=== PATIENT | female | born 1955 | race Caucasian/White ===

== ENCOUNTER 2019-07-01 21:11 | Emergency (ER) | payer OTHER ==
[~2019-07-01] VITALS: Ht 157.5 cm; Wt 86.2 kg
[2019-07-01 21:15] VITALS: BP 135/69
--- NOTE | 2019-07-01 21:19 | NUR ---
PT TAKEN TO BED 5
--- NOTE | 2019-07-01 21:25 | NUR ---
63 Y/O FEMALE BIB DAUGHTER C/P C/O PELVIC PAIN X 4 DAYS. PT DENIES ANY BLEEDING, BUT STATES NAUSEA. PATIENT APPEARS CALM AND COOPERATIVE. PAIN IS 9/10 ACUTE, SHARP PAIN STARTING IN BOTH SIDE OF HER PELVIS AND RADIATES TO THE RIGHT SIDE AND RIGHT LEG. PER PATIENT'S DAUGHTER, PAIN IS "MORE ON THE RIGHT SIDE AND THAT PAIN GETS STRONGER WHEN LYING DOWN". A/OX3 FOLLOWS COMMANDS; BREATHING IS UNLABORED AND SYMMETRICAL. ABDOMEN IS SOFT AND ROUND. TENDERNESS AND FACIAL GRIMACING NOTED UPON PALPATION ON RIGHT AND LEFT SIDE OF THE PELVIS. VSS. ERMD MADE AWARE. SIDE RAILSX1. DAUGHTER AT BEDSIDE. WILL CONTINUE TO MONITOR. PMH: DIABETES NKDA RX: METFORMIN
[2019-07-01] MEDS ORDERED: BACITRACIN OINT 500 UNITS/GM PKT TP ONE (21:55)
--- NOTE | 2019-07-01 22:00 | NUR ---
Dr. Velasco examining patient.
[2019-07-01] MEDS ORDERED: ONDANSETRON 4 MG ODT PO ONE (22:15)
--- NOTE | 2019-07-01 22:29 | NUR ---
PATIENT IN NO DISTRESS AT THIS TIME. DAUGHTER AT BEDSIDE. WILL CONTINUE TO MONITOR.
[2019-07-01 22:30] LABS: BASOPHILS # (AUTO) 0.1 K/uL (0.00-0.22); EOSINOPHILS # (AUTO) 0.6 K/uL (0-0.4); EOSINOPHILS % (AUTO) 7.4 % (0.0-4.0); HEMATOCRIT 40.3 % (36-48); HEMOGLOBIN 13.3 g/dL (12.0-16.0); LYMPHOCYTES % (AUTO) 26.2 % (20.5-51.1); MEAN CORPUSCULAR HEMOGLOBIN 31 pg (27-31); MEAN CORPUSCULAR HGB CONC 33 g/dL (33-37); MEAN CORPUSCULAR VOLUME 94.7 fL (80-94); MONOCYTES # (AUTO) 0.6 K/uL (0.8-1.0); MONOCYTES % (AUTO) 7.8 % (1.7-9.3); NEUTROPHILS # (AUTO) 4.3 K/uL (1.8-7.7); NEUTROPHILS % (AUTO) 57.6 % (42.2-75.2); PLATELET COUNT (AUTO) 306 K/uL (140-450); RED BLOOD CELL COUNT(AUTO) 4.25 MIL/uL (4.20-5.40); RED CELL DISTRIBUTION WIDTH 13.1 % (11.6-13.7); WHITE BLOOD COUNT (AUTO) 7.5 K/uL (4.8-10.8)
[2019-07-01 22:31] LABS: APPEARANCE,URINE CLEAR (CLEAR); BILIRUBIN,URINE NEGATIVE (NEGATIVE); BLOOD, URINE NEGATIVE (NEGATIVE); COLOR,URINE YELLOW (YELLOW); LEUKOCYTE ESTERASE ,URINE NEGATIVE (NEGATIVE); NITRITE, URINE NEGATIVE (NEGATIVE); UGLUCOSE NEGATIVE (NEGATIVE)
[2019-07-01 22:43] LABS: ALBUMIN 3.1 g/dL (3.4-5.0); ANION GAP 7.5 (8-16); CREATININE 0.7 mg/dL (0.6-1.3); POTASSIUM 3.5 mmol/L (3.5-5.1); TOTAL BILIRUBIN 0.2 mg/dL (0.0-1.0)
--- NOTE | 2019-07-01 23:10 | NUR ---
PATIENT IS QUIETLY SITTING IN BED. DAUGHTER AT BEDSIDE. WILL CONTINUE TO MONITOR.
--- NOTE | 2019-07-01 23:42 | NUR ---
PATIENT AMBULATED TO RESTROOM.
--- NOTE | 2019-07-01 23:47 | NUR ---
PT TAKEN TO CT
--- NOTE | 2019-07-01 23:56 | NUR ---
PT RETURN FROM CT
--- NOTE | 2019-07-02 02:12 | NUR ---
PATIENT IS SLEEPING AT THIS TIME. WILL CONTINUE TO MONITOR.
[2019-07-02] MEDS ORDERED: HYDROcodone/APAP 5/325 MG 1 TAB TAB PO ONE (02:30)
[2019-07-02 02:33] VITALS: BP 119/68
--- NOTE | 2019-07-02 02:33 | NUR ---
Patient discharged with v/s stable. Written and verbal after care instructions given and explained. Patient alert, oriented and verbalized understanding of instructions. Ambulatory with steady gait. All questions addressed prior to discharge. ID band removed. Patient advised to follow up with PMD. Rx of IBUPROFEN 600MG; ZOFRAN ODT 4MG; MIRALAX POWDER given. Patient educated on indication of medication including possible reaction and side effects. Opportunity to ask questions provided and answered.
== END 2019-07-02 02:33 | disposition home or self-care (01) ==
LOC: MED 21:11
DX: K56.41 Fecal impaction (principal); R11.2 Nausea with vomiting, unspecified; R30.0 Dysuria; E11.9 Type 2 diabetes mellitus without complications; I10 Essential (primary) hypertension; Z90.49 Acquired absence of other specified parts of digestive tract; Z98.890 Other specified postprocedural states
CPT/HCPCS: 36415; 74176; 80053; 81003; 83690; 85025; 99283; Q0162

== ENCOUNTER 2020-06-16 20:22 | Emergency (ER) | payer OTHER ==
[~2020-06-16] VITALS: Ht 149.9 cm; Wt 79.4 kg
[2020-06-16 20:31] VITALS: BP 127/70
--- NOTE | 2020-06-16 20:39 | NUR ---
PT TAKEN TO BED 08 VIA WHEELCHAIR.
--- NOTE | 2020-06-16 20:40 | NUR ---
64 YO F BIB DAUGHTER FOR C/C OF ALOC. PT PRESENTS A&O X2 TO NAME AND PLACE, UNABLE TO ANSWER MONTH/YEAR CORRECTLY. PERRLA 2MM WITH BRISK REACTION. PER DAUGHTER PT VOMITED X1. S1 S2 HEARD, LUNG SOUNDS CLEAR. BOWEL SOUNDS HYPOACTIVE TRHOUGHOUT. GENERALIZED WEAKNESS ASSESSED IN BUE AND BLE. PT STATES SHE HAS 8/10 LOWER ABDOMINAL PAIN X1 YEAR. VSS, AFEBRILE. BED LOCKED AND IN LOWEST POSITON. SIDE RAILS X2. CARIDAC MONITOR/PULSE OX IN PLACE. MED HX: HYPERLIPIDEMIA RX: ATORVASTATIN, METRONIDAZOLE, CIPROFLOXACIN NKA
--- NOTE | 2020-06-16 20:51 | NUR ---
ATTEMPTED TO CALL JOSEPHINE- PTS DAUGHTER TO OBTAIN MED HX. LEFT A VOICEMAIL WITH CALLBACK NUMBER.
[2020-06-16] MEDS ORDERED: ONDANSETRON 4 MG/2 ML VIAL IM ONE (20:55)
[2020-06-16] MEDS ORDERED: MECLIZINE 25 MG TAB PO ONE (21:35)
--- NOTE | 2020-06-16 21:51 | NUR ---
ASSISTED PT TO BEDSIDE COMODE. UA PROVIDED. PT PLACED BACK ON CARDIAC MONTIOR.
--- NOTE | 2020-06-16 22:15 | NUR ---
SPOKE TO PTS DAUGHTER JOSEPHINE IN [facility] TO OBTAIN MED HX. PER TATIANA PT IS BEING TREATED FOR DIVERTICULITIS AND REOCCURING UTI. PT BEGAN TAKING ANTIBIOTICS THIS MORNING FOR INFECTIONS. PT IS TO SEE GI DOCTOR ON 06/29 FOR COLONOSCOPY/ENDOSCOPY. PT HAS HAD CHRONIC LOWER ABD PAIN FOR 1 YEAR. HUMBERTO MADE AWARE. [phone]
--- NOTE | 2020-06-16 22:23 | NUR ---
PT TAKEN TO CT VIA AGUSTINA
--- NOTE | 2020-06-16 22:34 | NUR ---
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 BED LOCKED AND IN LOWEST POSITION. SIDE RAILS X2.
[2020-06-16 23:17] VITALS: BP 121/46
--- NOTE | 2020-06-16 23:17 | NUR ---
Patient discharged with v/s stable. Written and verbal after care instructions given and explained. Patient alert, oriented and verbalized understanding of instructions. Wheel Chair Assisted with to car. All questions addressed prior to discharge. ID band removed. Patient advised to follow up with PMD. Rx of MECLIZINE given. Patient educated on indication of medication including possible reaction and side effects. Opportunity to ask questions provided and answered.
== END 2020-06-16 23:17 | disposition home or self-care (01) ==
LOC: MED 20:22
DX: H81.10 Benign paroxysmal vertigo, unspecified ear (principal); K57.92 Diverticulitis of intestine, part unspecified, without perforation or abscess without bleeding; E11.9 Type 2 diabetes mellitus without complications; I10 Essential (primary) hypertension
CPT/HCPCS: 70450; 81002; 96372; 99284; J2405; J8597

== ENCOUNTER 2021-09-21 14:36 | Emergency (ER) | payer OTHER ==
[~2021-09-21] VITALS: Ht 154.9 cm; Wt 89.4 kg
[2021-09-21 14:47] VITALS: BP 133/62
[2021-09-21 15:28] LABS: BASOPHILS # (AUTO) 0.1 K/uL (0.00-0.22); BASOPHILS % (AUTO) 0.5 % (0.0-2.0); EOSINOPHILS # (AUTO) 0.3 K/uL (0-0.4); EOSINOPHILS % (AUTO) 2.9 % (0.0-4.0); HEMATOCRIT 41.4 % (36-48); HEMOGLOBIN 13.8 g/dL (12.0-16.0); LYMPHOCYTES # (AUTO) 2.2 K/uL (2.5-16.5); MEAN CORPUSCULAR HEMOGLOBIN 31 pg (27-31); MEAN CORPUSCULAR HGB CONC 33 g/dL (33-37); MEAN CORPUSCULAR VOLUME 93.6 fL (80-94); MONOCYTES # (AUTO) 0.7 K/uL (0.8-1.0); MONOCYTES % (AUTO) 6.7 % (1.7-9.3); NEUTROPHILS # (AUTO) 6.9 K/uL (1.8-7.7); NEUTROPHILS % (AUTO) 67.9 % (42.2-75.2); PLATELET COUNT (AUTO) 279 K/uL (140-450); RED BLOOD CELL COUNT(AUTO) 4.43 MIL/uL (4.20-5.40); RED CELL DISTRIBUTION WIDTH 12.6 % (11.6-13.7); WHITE BLOOD COUNT (AUTO) 10.2 K/uL (4.8-10.8)
[2021-09-21 15:38] LABS: BILIRUBIN,URINE NEGATIVE (NEGATIVE); BLOOD, URINE TRACE-I (NEGATIVE); COLOR,URINE YELLOW (YELLOW); LEUKOCYTE ESTERASE ,URINE 2+ (NEGATIVE); NITRITE, URINE NEGATIVE (NEGATIVE); UGLUCOSE NEGATIVE (NEGATIVE)
[2021-09-21 15:40] LABS: APPEARANCE,URINE HAZY (CLEAR)
[2021-09-21 15:57] LABS: ALBUMIN 3.4 g/dL (3.4-5.0); ANION GAP 10.8 (8-16); CARBON DIOXIDE 29.2 mmol/L (21-32); CREATININE 0.6 mg/dL (0.6-1.3); TOTAL BILIRUBIN 0.2 mg/dL (0.0-1.0)
[2021-09-21 17:57] LABS: RBC,URINE 0-5 /HPF (0-5)
[2021-09-21] MEDS ORDERED: KETOROLAC 60 MG/2 ML VIAL IM ONE ×2 (18:35→19:39)
[2021-09-21] MEDS ORDERED: ACET-8386 PO (18:46)
[2021-09-21] MEDS ORDERED: IBUP-2213 PO (18:46)
[2021-09-21] MEDS ORDERED: CIPR500T4 PO (18:46)
--- NOTE | 2021-09-21 19:20 | NUR ---
MEDICATED PER ERMDS ORDER, TOLERATED WELL
[2021-09-21 19:55] VITALS: BP 119/75
--- NOTE | 2021-09-21 19:55 | NUR ---
Patient discharged with v/s stable. Written and verbal after care instructions given and explained. Patient alert, oriented and verbalized understanding of instructions. Ambulatory with steady gait. All questions addressed prior to discharge. ID band removed. Patient advised to follow up with PMD. Rx of CIPTO, IBUPROFEN, HYDROCODONE given. Patient educated on indication of medication including possible reaction and side effects. Opportunity to ask questions provided and answered.
== END 2021-09-21 19:55 | disposition home or self-care (01) ==
LOC: MED 14:36
DX: N39.0 Urinary tract infection, site not specified (principal); E11.9 Type 2 diabetes mellitus without complications; I10 Essential (primary) hypertension; F17.210 Nicotine dependence, cigarettes, uncomplicated; Z90.49 Acquired absence of other specified parts of digestive tract; Z98.890 Other specified postprocedural states
CPT/HCPCS: 36415; 74176; 80053; 81001; 83690; 85025; 87086; 96372; 99284; J1885